=== PATIENT | male | born 1990 | race Caucasian/White ===

== ENCOUNTER 2016-06-23 09:39 | Emergency (ER) | payer OTHER ==
[~2016-06-23] VITALS: Ht 180.3 cm; Wt 86.0 kg
[~2016-06-23 09:39] MED LIST: AMLO-110 PO
[2016-06-23 09:43] VITALS: TEMP 36.8; Ht 180.3 cm; Wt 86.0 kg
[2016-06-23] MEDS ORDERED: MoRPHine SULFATE 4 MG/ML 1 ML CARP\\VIAL IV STA (10:03)
[2016-06-23] MEDS ORDERED: IBUP-1050 PO (10:11)
[2016-06-23 10:48] LABS: BASO % 0.2 %; BASO ABS # 0.02 K/uL (0-0.2); COMPLETE YES; EOS % 0.2 %; HEMATOCRIT 44.1 % (42-52); IG% 0.3 %; LYMPH % 11.6 %; LYMPH ABS # 1.18 K/uL (1.2-3.4); MEAN CELL VOLUME 84.2 fL (80-100); MEAN CORPUSCULAR HEMOGLOBIN 30.3 pg (25-34); MEAN CORPUSCULAR HGB CONC 36.1 g/dl (32-36); MEAN PLATELET VOLUME 12.8 fL (7.4-10.4); MONO % 4.7 %; PLATELET COUNT 156 K/uL (130-400); RED BLOOD COUNT 5.24 M/uL (4.7-6.1)
[2016-06-23 11:19] LABS: BUN/CREATININE RATIO 10.1 (10-20); CALCIUM 9.4 mg/dl (8.5-10.1); CREATININE 1.2 mg/dl (0.60-1.40); POTASSIUM 3.9 mmol/L (3.5-5.1)
[2016-06-23 11:22] LABS: ALB/GLOB RATIO 1.6 (0.9-2)
--- NOTE | 2016-06-23 11:22 | EMERGENCY ROOM VISIT NOTE ---
History Report prepared by Kym: Mesha Paul Under the Supervision of: Dr. Dahlia Harvey D.O. First contact with patient: 09:54 Chief Complaint: SWELLING TO EXTREMITY Stated Complaint: SWOLLEN LEFT CALF, UNABLE TO WALK ON IT History of Present Illness The patient is a 25 year old male who presents to the Emergency Room with complaints of worsening left calf edema and pain that started this morning. He describes the pain as throbbing. The pain is worse when he tries to flex his calf muscle or put weight on his leg. He is also experiencing tingling in his left foot. The patient states that he woke up with his symptoms and they have been getting worse since then. He is unable to ambulate secondary to the pain. The patient states that he plays racquetball and wrestles regularly. He did both things yesterday and does not remember any specific injuries. The patient states that he felt fine last night and did not notice any ecchymosis on his left leg. He denies fevers, shortness of breath, and nausea. The patient states that he has never experienced these symptoms in the past. The patient denies any family history of blood clots. Source of History: patient Onset: this morning Position: leg (left calf) Quality: other (edema and throbbing pain) Timing: worsening Modifying Factors (Worsening): movement (flexing calf muscle, putting weight on his leg) Associated Symptoms: No SOB, No fevers, No nausea Note: tingling in left foot Review of Systems See HPI for pertinent positives & negatives. A total of 10 systems reviewed and were otherwise negative. Past Medical & Surgical Medical Problems: (1) Bronchitis (2) History of tonsillitis Family History Hypertension Social History Smoking Status: Never Smoker Alcohol Use: none Drug Use: none Marital Status: single Current/Historical Medications Scheduled Amlodipine (Norvasc), 5 MG PO DAILY Scheduled PRN Hydrocodone/Acetaminophen 5MG/325MG ([place] 5MG/325MG), 1 TABLET PO Q6 PRN for Pain Ibuprofen (Advil), 200-600 MG PO Q4H PRN for Pain Allergies Coded Allergies: No Known Allergies (Unverified , 06/23/16) Physical Exam Vital Signs Date Time Temp Pulse Resp B/P Pulse Ox O2 Delivery O2 Flow Rate FiO2 06/23/16 14:38 70 15 162/84 96 Room Air 06/23/16 12:25 59 14 141/78 96 Room Air 06/23/16 09:43 36.8 100 18 161/125 99 Room Air Physical Exam GENERAL: alert, well appearing, well nourished, no distress, non-toxic EYE EXAM: normal conjunctiva, PERRL and EOM's grossly intact OROPHARYNX: no exudate, no erythema, lips, buccal mucosa, and tongue normal and mucous membranes are moist NECK: supple, no nuchal rigidity, no adenopathy, non-tender LUNGS: Clear to auscultation. Normal chest wall mechanics HEART: no murmurs, S1 normal and S2 normal ABDOMEN: abdomen soft, non-tender, normo-active bowel sounds, no masses, no rebound or guarding. BACK: Back is symmetrical on inspection and there is no deformity, no midline tenderness, no CVA tenderness. SKIN: no rashes and no bruising UPPER EXTREMITIES: upper extremities are grossly normal. LOWER EXTREMITIES: left calf is swollen compared to the right, left calf is firm and tender to the touch, pulses are intact bilaterally but left foot is cooler to the touch than the right, no crepitus, no discoloration, no bruising, NEURO EXAM: Normal sensorium, cranial nerves II-XII grossly intact, normal speech, no gross weakness of arms. Medical Decision & Procedures ER Provider Diagnostic Interpretation: MRI and US results have been interpreted by the radiologist and reviewed by me. MRI left calf LEFT LOWER EXT NON JOINT W/O IMPRESSION: 1. Focal hemorrhage within the medial gastrocnemius musculature, consistent with that of a posttraumatic hemorrhagic contusion or partial hemorrhagic muscular tear. 2. Extension of blood to the surrounding subcutaneous fat and fascial planes. 3. No evidence for tendinous involvement 4. All remaining components of the study are unremarkable. 5. The calf should be closely monitored to ensure complete resolution and exclude any additional underlying pathologic process. Electronically signed by: Shahid Greene M.D. 06/23/2016 1:12 PM Venous Doppler left leg VENOUS DOPP LOWER EXT UNILAT IMPRESSION: Normal study Electronically signed by: Shahid Greene M.D. 06/23/2016 1:55 PM Dictated Date/Time: 06/23/2016 1:54 PM Arterial Doppler left leg ART DOP DUPLEX LW EXT UNI IMPRESSION: Negative study Electronically signed by: Shahid Greene M.D. 06/23/2016 1:56 PM Dictated Date/Time: 06/23/2016 1:56 PM Laboratory Results 06/23/16 10:20 Red Blood Count 5.24, Mean Corpuscular Volume 84.2, Mean Corpuscular Hemoglobin 30.3, Mean Corpuscular Hemoglobin Concent 36.1, Mean Platelet Volume 12.8, Neutrophils (%) (Auto) 83.0, Lymphocytes (%) (Auto) 11.6, Monocytes (%) (Auto) 4.7, Eosinophils (%) (Auto) 0.2, Basophils (%) (Auto) 0.2, Neutrophils # (Auto) 8.47, Lymphocytes # (Auto) 1.18, Monocytes # (Auto) 0.48, Eosinophils # (Auto) 0.02, Basophils # (Auto) 0.02 06/23/16 10:20 Test 06/23/16 10:20 White Blood Count 10.20 K/uL (4.8-10.8) Red Blood Count 5.24 M/uL (4.7-6.1) Hemoglobin 15.9 g/dL (14.0-18.0) Hematocrit 44.1 % (42-52) Mean Corpuscular Volume 84.2 fL (80-100) Mean Corpuscular Hemoglobin 30.3 pg (25-34) Mean Corpuscular Hemoglobin Concent 36.1 g/dl (32-36) Platelet Count 156 K/uL (130-400) Mean Platelet Volume 12.8 fL (7.4-10.4) Neutrophils (%) (Auto) 83.0 % Lymphocytes (%) (Auto) 11.6 % Monocytes (%) (Auto) 4.7 % Eosinophils (%) (Auto) 0.2 % Basophils (%) (Auto) 0.2 % Neutrophils # (Auto) 8.47 K/uL (1.4-6.5) Lymphocytes # (Auto) 1.18 K/uL (1.2-3.4) Monocytes # (Auto) 0.48 K/uL (0.11-0.59) Eosinophils # (Auto) 0.02 K/uL (0-0.5) Basophils # (Auto) 0.02 K/uL (0-0.2) RDW Standard Deviation 37.3 fL (36.4-46.3) RDW Coefficient of Variation 12.2 % (11.5-14.5) Immature Granulocyte % (Auto) 0.3 % Immature Granulocyte # (Auto) 0.03 K/uL (0.00-0.02) Anion Gap 9.0 mmol/L (3-11) Est Creatinine Clear Calc Drug Dose 98.4 ml/min Estimated GFR () 95.5 Estimated GFR (Non- 82.4 BUN/Creatinine Ratio 10.1 (10-20) Calcium Level 9.4 mg/dl (8.5-10.1) Total Bilirubin 0.7 mg/dl (0.2-1) Aspartate Amino Transf (AST/SGOT) 32 U/L (15-37) Alanine Aminotransferase (ALT/SGPT) 33 U/L (12-78) Alkaline Phosphatase 52 U/L (45-117) Total Creatine Kinase 711 U/L (39-308) Total Protein 7.2 gm/dl (6.4-8.2) Albumin 4.4 gm/dl (3.4-5.0) Globulin 2.8 gm/dl (2.5-4.0) Albumin/Globulin Ratio 1.6 (0.9-2) Laboratory results per my review. Medications Administered Medications (Trade) Dose Ordered Sig/Reina Route Start Time Stop Time Status Last Admin Dose Admin Morphine Sulfate (MoRPHine SULFATE INJ) 4 mg NOW STAT IV 06/23/16 10:03 06/23/16 10:05 DC 06/23/16 10:03 4 MG Acetaminophen/ Hydrocodone Bitart ([place] 5/325 Tab) 1 tab ONE STAT PO 06/23/16 14:07 06/23/16 14:09 DC 06/23/16 14:35 1 TAB ED Course 0955: The patient was evaluated in room B10. A complete history and physical exam was performed. 1003: Ordered Morphine Sulfate 4 mg IV 1014: I reviewed the patient's case with Dr. Zurita - Orthopedic Surgery. He recommended ordering both an arterial and venous Doppler, along with a MRI without contrast of his lower extremity if possible. He will be in to evaluate the patient for further management. 1054: Dr. Zurita has evaluated the patient. He feels that the patient's symptoms are musculoskeletal in nature and wants to see what the MRI reveals before he provides any further management. 1335: Dr. Zurita reviewed the patient's MRI. He is going to update the patient and inform him that he would like him to follow-up in the office. He recommended starting the patient on something for pain. 1400: Upon reevaluation, the patient is doing well. I discussed the findings and the treatment plan with the patient. He verbalizes agreement and understanding. He was discharged home. 1407: Ordered Acetaminophen/Hydrocodone Bitart 1 tab PO Medical Decision Differential diagnosis: Etiologies such as compartment syndrome, gastrocnemius tear, DVT, arterial insufficiency, as well as others were entertained. Pt well appearing here and aware of all results. Pt seen/evaluated by ortho in the ER. Discussed pain meds with pt. All questions answered. Consults Time Called: 1013 Consulting Physician: Dr. Zurita - Orthopedic Surgery Returned Call: 1014 I reviewed the patient's case with Dr. Zurita - Orthopedic Surgery. He recommended ordering both an arterial and venous Doppler, along with a MRI without contrast of his lower extremity if possible. He will be in to evaluate the patient for further management. Impression Primary Impression: Rupture of medial head of left gastrocnemius Scribe Attestation The scribe's documentation has been prepared under my direction and personally reviewed by me in its entirety. I confirm that the note above accurately reflects all work, treatment, procedures, and medical decision making performed by me. Departure Information Dispostion Home / Self-Care Prescriptions Hydrocodone/Acetaminophen 5MG/325MG ([place] 5MG/325MG) Tab 1 TABLET PO Q6 Y for Pain, #14 TAB Prov: Dahlia Harvey, 06/23/16 Referrals Jeff Zurita, Forms HOME CARE DOCUMENTATION FORM, IMPORTANT VISIT INFORMATION, WORK / SCHOOL INSTRUCTIONS Patient Instructions My [facility] Additional Instructions Please, follow up with Dr. Zurita as instructed. Please adhere to the instructions he gave the bedside. You may use the pain medication as provided. Please note that it may make him nauseous, and/or may make you constipated. Please drink plenty of water. If you have any worsening pain, develops discoloration, numbness or tingling, fevers, vomiting, or any other new concerns , please return to emergency room. Problem Qualifiers Primary Impression: Rupture of medial head of left gastrocnemius Encounter type: initial encounter Qualified Codes: S86.812A - Strain of other muscle(s) and tendon(s) at lower leg level, left leg, initial encounter
--- NOTE | 2016-06-23 13:13 | DIAGNOSTIC IMAGING REPORT ---
MRI left calf LEFT LOWER EXT NON JOINT W/O CLINICAL HISTORY: left calf pain/edema, foot cool/paresthesias pain TECHNIQUE: MRI multi axial acquisition COMPARISON STUDY: None FINDINGS: Findings of a 6 x 3 cm hemorrhagic focus involving the proximal medial gastrocnemius musculature. This is highly suspect for a hemorrhagic tear of the muscle itself. A small amount of bladder is seen within the soft tissues surrounding the musculature and extending to the medial margin of the mid shaft 2 proximal midshaft tibia. Osseous structures appear unremarkable. There is no bone marrow replacing process. IMPRESSION: 1. Focal hemorrhage within the medial gastrocnemius musculature, consistent with that of a posttraumatic hemorrhagic contusion or partial hemorrhagic muscular tear. 2. Extension of blood to the surrounding subcutaneous fat and fascial planes. 3. No evidence for tendinous involvement 4. All remaining components of the study are unremarkable. 5. The calf should be closely monitored to ensure complete resolution and exclude any additional underlying pathologic process. Electronically signed by: Shahid Greene M.D. 06/23/2016 1:12 PM Dictated Date/Time: 06/23/2016 1:02 PM
--- NOTE | 2016-06-23 13:57 | DIAGNOSTIC IMAGING REPORT ---
Venous Doppler left leg VENOUS DOPP LOWER EXT UNILAT CLINICAL HISTORY: left calf pain/swelling pain. Edema. TECHNIQUE: Venous Doppler COMPARISON STUDY: None FINDINGS: Normal study IMPRESSION: Normal study Electronically signed by: Shahid Greene M.D. 06/23/2016 1:55 PM Dictated Date/Time: 06/23/2016 1:54 PM
--- NOTE | 2016-06-23 13:58 | DIAGNOSTIC IMAGING REPORT ---
Arterial Doppler left leg ART DOP DUPLEX LW EXT UNI CLINICAL HISTORY: left foot cool/tingling pain TECHNIQUE: Arterial Doppler COMPARISON STUDY: None FINDINGS: Unremarkable arterial flow throughout. Triphasic waveforms are present. IMPRESSION: Negative study Electronically signed by: Shahid Greene M.D. 06/23/2016 1:56 PM Dictated Date/Time: 06/23/2016 1:56 PM
[2016-06-23] MEDS ORDERED: HYDROCODONE/ACETAMOPHEN 5/325MG TAB PO STA (14:07)
[2016-06-23] MEDS ORDERED: HYDR-5688 PO (14:12)
[2016-06-23 14:38] VITALS: BP 162/84; PULSE 70; O2SAT 96
--- NOTE | 2016-06-23 15:40 | ORTHOPEDIC CONSULTATION ---
DATE OF CONSULTATION: 06/23/2016 CHIEF COMPLAINT: Left calf pain. HISTORY OF PRESENT ILLNESS: Eligio is a pleasant 25-year-old male who woke up this morning with significant left calf pain and swelling. He was doing a lot of exercise yesterday and was doing a lot of wrestling, later into the evening, he said he was having no calf pain at that time, then he went to bed. He woke up this morning with rather severe left calf pain. He came to the Emergency Room and there was a concern for compartment syndrome so orthopedics was consulted. PAST MEDICAL HISTORY: Significant for hypertension. MEDICATIONS: Include Norvasc 5 mg daily and Advil 600 mg as needed for pain. ALLERGIES: None. FAMILY HISTORY: Noncontributory. SOCIAL HISTORY: He is 25 years old, very active and currently lives in [facility]. PHYSICAL EXAMINATION: Left calf, there is some mild ecchymosis. Most of the pain and swelling is along the medial head of the gastroc. He does have active dorsiflexion and plantarflexion of his left ankle. His sensation is completely intact of his left foot. His left forefoot is cooler than his right forefoot. His dorsalis pedis pulse is easily palpated. He has no pain over the anterior and lateral compartments. There is tightness in the cast, but I am able to touch it rather firmly without much pain. IMAGING DATA: MRI of the left leg does show a very high grade partial rupture of the medial head of the gastroc with a small hematoma and fluid in the area. Ultrasound is still pending. IMPRESSION: Partial tear of the medial head of the gastroc of the left calf. PLAN: We are awaiting the results of the ultrasound. If the ultrasound is negative for any blood clots he can be safe to be discharged to home. I did talk to him about what to look out for such as uncontrollable pain, pain with motion of his ankle, numbness of his foot or any change in color of his foot or his toes. I told him it may take 6 weeks to recover. I will see him in the office in 1-2 weeks to evaluate his calf and follow him until it gets better. He call my office at [phone]. [facility]ITALN[facility]
== END 2016-06-23 14:50 | disposition home or self-care (01) ==
LOC: C.EDB 09:40
DX: S86.812A Strain of other muscle(s) and tendon(s) at lower leg level, left leg, initial encounter (principal); X58.XXXA Exposure to other specified factors, initial encounter; Z82.49 Family history of ischemic heart disease and other diseases of the circulatory system; M62.89 Other specified disorders of muscle

== ENCOUNTER 2016-07-07 09:20 | Emergency (ER) | payer OTHER ==
[~2016-07-07] VITALS: Ht 180.3 cm; Wt 95.1 kg
[~2016-07-07 09:20] MED LIST changes: +HYDR-5688 PO; +IBUP-1050 PO
[2016-07-07 09:23] VITALS: TEMP 37.4; Ht 180.3 cm; Wt 95.1 kg
[2016-07-07] MEDS ORDERED: PROPARACAINE HCL 0.5% OP SOLN 15 ML BTL OP STA (09:32)
--- NOTE | 2016-07-07 09:45 | EMERGENCY ROOM VISIT NOTE ---
History First contact with patient: 09:25 Chief Complaint: EYE ASSESSMENT Stated Complaint: RIGHT EYE IS RED,UNOPENABLE History of Present Illness The patient is a 25 year old male who presents to the Emergency Room via private vehicle with complaints of "right eye is red, upopenable". The patient states that evening he fell asleep with his contacts and accidentally and when he awoke Saturday morning he had bilateral eye irritation. He states that the right eye has progressed and now it is difficult to open. He states the left eye is now feeling better. He rates the right eye pain as a 7/10 in the left is a 3/10. He does not have an eye doctor in the area. He denies any allergies. He notes that he does have slight blurred vision. Review of Systems A complete 10-point Review of Systems was discussed with the patient, with pertinent positives and negatives listed in the History of Present Illness. All remaining Review of Systems questions can be considered negative unless otherwise specified. Past Medical/Surgical History Medical Problems: (1) Bronchitis (2) History of tonsillitis Family History Hypertension No pertinent at this time. Social History Smoking Status: Never Smoker Alcohol Use: none Drug Use: none Marital Status: single Social History: Patient lives in [facility] [place] [place]. Current/Historical Medications Scheduled Amlodipine (Norvasc), 5 MG PO DAILY Cyclopentolate Hcl (Cyclogyl 1% Oph), 1 DROP OPR QID Moxifloxacin Hcl (Ophth) (Vigamox 0.5% Oph), 1 DROPS OP Q4H Scheduled PRN Hydrocodone/Acetaminophen 5MG/325MG ([place] 5MG/325MG), 1 TABLET PO Q6 PRN for Pain Ibuprofen (Advil), 200-600 MG PO Q4H PRN for Pain Oxycodone/Acetaminophen 5MG/325MG (Percocet 5MG/325MG), 1-2 TABS PO Q4 PRN for Pain Allergies Coded Allergies: No Known Allergies (Unverified , 06/23/16) Physical Exam Vital Signs Date Time Temp Pulse Resp B/P Pulse Ox O2 Delivery O2 Flow Rate FiO2 07/07/16 10:48 72 18 142/78 98 Room Air 07/07/16 09:23 37.4 83 18 161/101 100 Room Air Physical Exam VITAL SIGNS - Vital signs and nursing notes were reviewed. Afebrile, hypertensive at 161/101, non-tachycardic and is saturating well on room air at 100%. GENERAL -25-year-old male appearing his stated age. Communicates well with provider and answers questions appropriately. HEAD - Normocephalic, Atraumatic. No Spaulding's Sign or Raccoon's Eyes. No depressed skull fractures palpable. EYES - PERRL with EOMI bilaterally. Sclera without noticeable foreign body or excoriations. Bilateral conjunctival injection noted in the right and left eye. Both eyes Without subconjunctival hemorrhage. Palpebral conjunctiva pink and moist with no injection or discharge noted. Slit lamp examination performed as further described. EARS - No deformities of external structures noted on gross examination bilaterally. Handle of malleus, umbo, cone of light, pars tensa/flaccid all easily visualized. NOSE - Midline and without cyanosis. Without discharge. MOUTH/OROPHARYNX - Without perioral cyanosis. Tongue midline with equal elevation of palate bilaterally. No tonsillar hypertrophy, erythema, or exudates noted. fair dentition noted. NECK - FROM assessed. No cervical lymphadenopathy noted. Slit Lamp Examination was performed of the bilateral eye(s). Alcaine drops were applied to the affected eye(s) for proper anesthetization. The affected eye(s) were stained with Fluorescein stain to precipitate adequate visualization of any conjunctival/scleral excoriations or ulcers. The patient's face was comfortably rested on the chin guard of the slit lamp apparatus. The lights were dimmed and the affected eye(s) were thoroughly examined under microscopy using the blue light. There was no uptake present in the left eye. The right eye reveals uptake over the central axis of vision extending into the 2:00 direction in a 1 cm x 1 cm ulceration. The eyes were thoroughly rinsed. Patient tolerated the procedure well and no complications were met. Medical Decision & Procedures Medications Administered Medications (Trade) Dose Ordered Sig/Reina Route Start Time Stop Time Status Last Admin Dose Admin Proparacaine HCl (Alcaine 0.5% Oph Soln) 2 drops NOW STAT OP 07/07/16 09:32 07/07/16 09:33 DC 07/07/16 09:51 2 DROPS Medical Decision Patient was seen and evaluated as above. After obtaining a thorough history and physical examination visual acuity was assessed. Bilateral examination of the eyes is unremarkable. The stain enhanced exam reveals diffuse uptake over the central axis of vision of the right eye consistent with a corneal ulceration. Left eye unremarkable. Because of the extent, I did elect to discuss the case with my attending as well as the on-call system developer associate manager. I spoke with Dr. Paul at 10:17 AM. He recommended I place the patient on a fourth generation fluoroquinolones such as Vigamox. For comfort he also recommended Cyclogyl. He recommended a Vigamox 1 drop every 4 hours for 7 days and the Cyclogyl 4 times daily until better. He instructed me to have the patient not wear the contact in the right eye, but he may use it in the left if he needs for his vision. He is to call their office to schedule follow-up testing on Saturday. He may use artificial tears in his left eye. He appears to be stable for discharge and out patient management. He is to return if worsening. Prescriptions to include Percocet was sent to his pharmacy however I was called by his pharmacy to verify that I wanted his medications and I verified these to be correct. The patient then called me back saying that they did not have the Cyclogyl therefore he returned and it was dispensed to him from the pharmacy here. I also called the pharmacy to see if they had a sock and he did not therefore felt it was appropriate for him to return for this prescription. He was educated upon management, had questions answered prior to discharge, was educated upon worrisome symptoms which to return and was discharged home in good condition. In the evaluation and treatment of this patient, the following differential diagnoses were considered: Corneal Abrasion, Conjunctivitis, Eye Contusion, Globe Injury, Orbital Floor Injury (Blowout Fracture), Corneal Ulcer, Keratitis , Herpes Zoster Opthalmic, Blepharitis, Orbital Cellulitis, Iritis, Scleritis/ Episcleritis, Uveitis, Temporal Arteritis, Subconjunctival Hemorrhage. Impression Primary Impression: Corneal ulcer of right eye Departure Information Dispostion Home / Self-Care Condition GOOD Prescriptions Oxycodone/Acetaminophen 5MG/325MG (PERCOCET 5MG/325MG) Tab 1-2 TABS PO Q4 Y for Pain, #15 TAB For Initial Treatment Prov: Alek Ponce, MANI 07/07/16 Cyclopentolate Hcl (CYCLOGYL 1% OPH) 1 % Deysi 1 DROP OPR QID for 5 Days, #1 BTL Prov: Alek Ponce PA-C 07/07/16 Moxifloxacin Hcl (Ophth) (VIGAMOX 0.5% OPH) 0.5 % [place] 1 DROPS OP Q4H for 7 Days, #1 BTL Prov: Alek Ponce PA-C 07/07/16 Referrals No Doctor, Assigned (PCP) Mo Paul MD Patient Instructions My [facility] Additional Instructions You have been treated in the Emergency Department today for your right eye corneal ulcer. You have been prescribed Oxy IR to be used for pain control. This is a narcotic medication. You cannot drive or consume alcohol while on this medicine. This medicine should only be used for pain that cannot be controlled with over-the- counter pain medicines. You have been prescribed Vigamox eye drops. This is an antibiotic which will help to prevent an infection from developing in your affected eye. You should use 1 drop in the affected eye every 4 hours for 7 days This is a total of a 7- day course for these antibiotic eye drops. You have been prescribed Cyclogyl eye drops. This is a dilating eye drop which will help with pain your affected eye. You should use 1 drop in the affected eye every 6 hours for 5 days or until relief. For pain control, you can use the following [id number] medicines (if >12 yo): - Regular strength (325mg/tab) Tylenol (acetaminophen) 2 tabs every 4-6 hours as needed. Do not exceed 12 tablets in a 24 hour period. Avoid taking more than 4 grams (4000 mg) of Tylenol per day. This includes any other sources of acetaminophen you may take on a regular basis. DO NOT TAKE WITH THE PERCOCET - Regular strength (200 mg/tab) Advil (ibuprofen) 1-2 tabs every 4-6 hours as needed. Do not exceed a dose of 3200 mg per day. You should relax in a quiet, dark place for the rest of the day. You should wear sunglasses while outside for the next few days until your eyes are not as sensitive to the light. You should schedule a follow-up appointment on SATURDAY with DR. PAUL Eye Doctor (Academic Specialist) for further evaluation and treatment of your Corneal ulcer. Please call them first thing saturday. Return to the Emergency Department if your current symptoms worsen despite treatment course outlined above, or if you develop any of the following symptoms : intractable pain, visual disturbances, loss of vision, increased redness, swelling, drainage, or if you develop a fever. Please return to the emergency department with any new/concerning symptoms.
[2016-07-07] MEDS ORDERED: CYCL1SOL OPR (10:47)
[2016-07-07] MEDS ORDERED: OXYC-57 PO (10:47)
[2016-07-07] MEDS ORDERED: VGMOPS OP (10:47)
[2016-07-07 10:48] VITALS: BP 142/78; PULSE 72; O2SAT 98
[2016-07-07] MEDS ORDERED: CYCLOPENTOLATE HCL 1% OP SOLN 2 ML BTL OP STA ×2 (11:41→11:53)
== END 2016-07-07 11:00 | disposition home or self-care (01) ==
LOC: C.EDB 09:22
DX: H16.001 Unspecified corneal ulcer, right eye (principal)